=== PATIENT | female | born 1970 | race Caucasian/White ===

== ENCOUNTER 2020-02-05 08:31 | Outpatient (CLI) | payer OTHER, SELFPAY ==
[2020-02-05 09:37] LABS: Hematocrit 39.8 % (37.0-47.0)
== END 2020-02-05 08:32 | disposition home or self-care (01) ==
LOC: ANHSURGERY 08:46
PROVIDERS: Anesthesiology; Visit Provider Obstetrics & Gynecology
DX: Z01.812 Encounter for preprocedural laboratory examination (principal); N92.0 Excessive and frequent menstruation with regular cycle
CPT/HCPCS: 36415; 85014; 85018; 86850; 86900; 86901

== ENCOUNTER 2020-02-06 00:47 | Outpatient (CLI) | payer OTHER, SELFPAY ==
[2020-02-06 18:38] LABS: SARS-CoV-2 RNA PCR Negative
== END 2020-02-06 00:48 | disposition home or self-care (01) ==
LOC: ANHCOVIDDT 00:47
PROVIDERS: Visit Provider Obstetrics & Gynecology
DX: Z01.812 Encounter for preprocedural laboratory examination (principal); Z20.828 Contact with and (suspected) exposure to other viral communicable diseases
CPT/HCPCS: 87635; C9803; U0003

== ENCOUNTER 2020-02-08 01:22 | Day surgery (SDC) | payer OTHER, SELFPAY ==
[2020-01-29 13:56] VITALS: BMI 37.7
[2020-02-08] VITALS (12 sets, daily range): BP systolic 101–143; BP diastolic 47–84; PULSE 77–98; RESP 10–16; TEMP 36.3–36.6; O2SAT 96–100; BMI 37.6
[2020-02-08] MEDS: LACTATED RINGERS 1,000 ML 30 ML IV CONT ×2 (10:32→15:20)
[2020-02-08] MEDS: ACETAMINOPHEN 500 MG TABLET 1000 MG PO (10:36)
[2020-02-08] MEDS: KETOROLAC 15 MG/ML VIAL (*BKC) IV PUSH (10:37)
--- NOTE | 2020-02-08 10:44 | WPDANESEPPF ---
Anes - Initial Pre Proc Eval Procedure: Operation Date: 02/08/20 12:00 Proposed Procedures p Laparoscopic Assisted Vaginal Hysterectomy, Bilateral Salpingo-Oophorectomy, Possible Total Abdominal Hysterectomy With Bilateral Salpingo-Oophorectomy - Kamran Welch MD Date/Time: 02/08/20 10:44 Surgeon: Kamran Welch MD Pre Op Diagnosis: Uterine Fibroids/ Menorrhagia Patient Data Age: 49 Gender: F Height: 5 ft 8 in Weight: 112.4 kg Last Vital Signs Temp 36.4 C 02/08/20 10:12 Pulse 98 02/08/20 10:12 Resp 16 02/08/20 10:12 BP 143/84 H 02/08/20 10:12 Pulse Ox 100 02/08/20 10:12 Allergies Allergy/AdvReac Type Severity Reaction Status Date / Time No Known Allergies Allergy Verified 02/08/20 10:03 Home Medications Medication Instructions Recorded Confirmed Type cholecalciferol (vitamin D3) 250 mcg PO DAILY 01/29/20 02/08/20 History [Vitamin D3] multivitamin 1 tablet PO DAILY 01/29/20 02/08/20 History Patient hx anesthesia problems: none Family hx anesthesia problems: none PMFSH Past Medical History Medical History (Updated 02/08/20 @ 10:45 by Dinh Weaver MD) Obesity Surgical History Surgical History (Updated 02/08/20 @ 10:45 by Dinh Weaver MD) History of section Family History Family History Other Family history of malignant neoplasm of brain Social History Social History Smoking status: Never smoker Alcohol intake: current Drinks per week: 1 Spiritual care concerns: No Anes - Eval Final PreProcedure Day of Procedure 02/08/20 10:44 Patient weight: obese Heart: regular rate and rhythm Lungs: clear to auscultation Airway: Mallampati scale class II Neurological: alert and oriented Last oral intake: >/= 8 hours ASA classification: II Emergent: no Anesthetic plan: proceed Anesthesia type and monitoring: general ETT and standard monitoring Informed Consent: The patient's anesthetic plan and its attendant risks and benefits were discussed with the patient/family/POA. Questions were solicited and answers provided to the satisfaction of the patient/family/POA.
--- NOTE | 2020-02-08 11:20 | PM.IMHP ---
H&P: HPI History of Present Illness Date/Time: 02/08/20 11:20 Chief complaint: Uterine Fibroids/ Menorrhagia Narrative: Isabel Fritz is a 49 year old female with a long history of fibroids and heavy cycles s/p uterine artery embolizaition with minimal relief for fibroids. Desires hysterctomy. s/p hormonal therapy. [facility] Past Medical History Medical History Fibroids Menorrhagia with regular cycle Obesity Surgical History Surgical History History of section S/P Family History Family History Other Family history of malignant neoplasm of brain Social History Social History Smoking status: Never smoker Alcohol intake: current Drinks per week: 1 Spiritual care concerns: No Meds Home Medications and Allergies Home Medications Medication Instructions Recorded Confirmed Type cholecalciferol (vitamin D3) 250 mcg PO DAILY 01/29/20 02/08/20 History [Vitamin D3] multivitamin 1 tablet PO DAILY 01/29/20 02/08/20 History Allergies Allergy/AdvReac Type Severity Reaction Status Date / Time No Known Allergies Allergy Verified 02/08/20 10:03 Vital Signs Vital Signs - 24 hr 02/08/20 10:12 Temperature 36.4 C Pulse Rate 98 Respiratory Rate 16 Blood Pressure 143/84 H Pulse Oximetry 100 Exam Const: General: no acute distress Eyes: General: appearance normal, both eyes and all related structures Resp: Effort & Inspection: normal respiratory effort Cardio: Rate: regular rate Rhythm: regular rhythm GI: GI Palp: Yes Soft to palpation : Speculum Exam - Vagina: normal appearance of the vagina Speculum Exam - Cervix: normal appearance of the cervix Bimanual exam- vagina & uterus: boggy and enlarged Assessment and Plan Assessment and plan (1) S/P : Code(s): Z98.891 - History of uterine scar from previous surgery Status: Acute (2) Menorrhagia with regular cycle: Code(s): N92.0 - Excessive and frequent menstruation with regular cycle Status: Acute Assessment and Plan: scheduled for a laparoscopic assisted vaginal hysterictomy with possible KAMARI. Risk and benefits reviewed with patient in detail. (3) Fibroids: Code(s): D21.9 - Benign neoplasm of connective and other soft tissue, unspecified Status: Acute
--- NOTE | 2020-02-08 11:26 | WPDHPUPDATE1 ---
History and Physical Update Update Date/Time: 02/08/20 11:26 History and Physical has been reviewed, including an updated exam of the patient. There are NO changes in the patient's condition. Risks, benefits, and alternatives have been discussed and questions answered. Patient agrees to proceed with procedure.
[2020-02-08] MEDS: ceFAZolin 2 GM/D5W 50 ML 2 GM/50 ML BAG IVPB (11:51)
[2020-02-08] MEDS: LIDO 1%/EPINEPHRINE 1:100,000 20 ML VIAL INFILTRATE (12:30)
--- NOTE | 2020-02-08 16:12 | PM.PROC ---
Procedure Note - Detailed Date of procedure: 02/08/20 Pre-op diagnosis: Uterine Fibroids/ Menorrhagia Post-op diagnosis: same Procedure performed: YONATAN Description of procedure: Patient was taken to the operating room with IV running prepped and draped in a normal sterile fashion after given general anesthesia she was placed in the dorsal lithotomy position. The abdomen perineum and vagina were prepped and draped in usual sterile fashion a Smith catheter into the bladder and attached to a straight drainage after initial preparation. a bivalve speculum was placed into the vagina anterior lip of the cervix was grasped with a single-tooth tenaculum. A uterine manipulator was placed into the cervix. [place] speculum was removed. Attention was then turned to the abdomen. A 5mm incision was made with the scalpel at the infraumbilical fold. the Veress needle was gently advanced taking care to feel for typical sensation are penetration of the peritoneum. With CO2 infiltration and an opening pressure of less than 6mm is noted and a peritoneal a 15mm was created. A 5mm trocar was then passed through the same incision and the laparoscopic was then inserted through the trocar sleeve. Visual parent visualization of the peritoneal cavity was then obtained and showed normal cavity and under direct observation 5mm ports were placed in the right and left sides. Beginning on the right side and distally along the length of the uterineovarian ligament and fallopian tube to the mesosalpinx and lifting the tube the mesosalpinx was then sequentially clamped ligated and cut using the Harmonic scalpel alongside the length of the tubing towards the cornu. At the level of the cornu was reached attention was then turned to the other side same process was repeated on the left initially clamping widening cutting the mesosalpinx being sure to not injure the adjacent ovarian tissue or the surrounding structures. The round ligament was then ligated and cut following this anterior leaf of the broad ligament was then taken down on both sides dissected down towards the peritoneal reflection in the base of the bladder and adjacent to the cervix. The same process was then repeated on the left side an had been appropriately skeletonized. To ensure excellent hemostasis prior to the transection and ligation of the pedicles. The uterine vessels and cardinal ligament was then ligated and divided on each side using the Harmonic scalpel. Attention was then turned to the vaginal aspect of the surgery the Smith catheter was removed weighted speculum was placed in the posterior aspect of the vagina and the vaginal manipulator was removed. The tenaculum repositioned anteriorly and posteriorly a circumferential incision was made after injecting with 1% lidocaine with and pain and this incision was made at the cervical vaginal reflection using a scalpel. This was undermined 1st anteriorly and colpotomy made without difficulty this was then repeated. Magali retractors were then placed into each of these incisions beginning 1st on the patient's left uterosacral and cardinal ligaments were clamped divided and suture ligated 2 bites were required breech from the previous dissection margin of the left the same process was then repeated on the patient's right side. Several bites nii taken vaginal and the uterus was not freed. Attention then returned to the abdomen and the remaining pedicles were transected and the uterus was freed and pulled from the vagina. the sutures had been placed and the cuff was closed transvaginally without difficulty all pedicles were inspected and hemostasis was confirmed the vaginal vault was then oversewn with a running locking suture of 0 Vicryl securing 1st the posterior edge of the cuff followed by the anterior. The vagina was packed. And using a laparoscopic, the abdomen was carefully reinspected insuring complete hemostasis. abdomen was inspected the ports were then remove
[2020-02-08] MEDS: SIMETHICONE 80 MG TAB.CHEW PO ×2 (17:35→20:21)
[2020-02-08] MEDS: KETOROLAC 30 MG/ML VIAL (*BKC) IV PUSH (17:35)
[2020-02-08] MEDS: DEXTROSE 5%/LACTATED RINGERS 1,000 ML 125 ML IV CONT (17:41)
--- NOTE | 2020-02-08 17:46 | PC.NURSE ---
This patient, Isabel Fritz, was admitted to OB 2nd Floor Room 289-00. Patient/family oriented to hospital policies and general routines including ID bracelet, bed and alarms, visiting hours, pain management, procedures, bathroom and other care routines, personal items, smoking policy, room service/diet, and visiting hours. Information on how to activate the Rapid Response Team has been discussed. Patient/Family are encouraged to report perceived risks to care and to ask questions if they do not understand what they are told or what they should do.
[2020-02-08] MEDS: HYDROcodone/acetaminophen (*CRX) 5-325 MG TABLET 1 TAB PO (20:18)
[2020-02-08] MEDS: SENNA/DOCUSATE SODIUM TABLET 2 TAB PO (20:19)
[2020-02-09 00:50] VITALS: BP 122/66; PULSE 87; RESP 14; TEMP 36.8; O2SAT 97
[2020-02-09] MEDS: HYDROcodone/acetaminophen (*CRX) 5-325 MG TABLET 1 TAB PO ×2 (00:59→05:08)
[2020-02-09] MEDS: SIMETHICONE 80 MG TAB.CHEW PO ×2 (00:59→09:44)
[2020-02-09] MEDS: KETOROLAC 30 MG/ML VIAL (*BKC) IV PUSH (00:59)
[2020-02-09 04:55] VITALS: BP 121/68; PULSE 74; RESP 14; TEMP 37.4; O2SAT 99
[2020-02-09] MEDS: ESTRADIOL 7 DAY 0.05 MG PATCH TRANSDERM (04:56)
[2020-02-09 05:33] LABS: Eosinophils Percent Auto 0.1 % (0-4.4); Hematocrit 35.1 % (37.0-47.0); Hemoglobin 11.3 g/dL (12.0-15.0); Immature Granulocyte Absolute 0.03 K/mm3 (0.00-0.031); Immature Granulocyte Percent A 0.3 % (0-0.5); Lymphocytes Absolute Auto 1.96 K/mm3 (0.9-3.2); Lymphocytes Percent Auto 20.9 % (18.3-44.2); Mean Corpuscular HGB Conc 32.2 g/dl (32-36); Mean Corpuscular Hemoglobin 26.5 pg (26-34); Mean Corpuscular Volume 82.4 fl (80-100); Mean Platelet Volume 9.9 fl (7.4-10.4); Monocytes Absolute Auto 0.8 K/mm3 (0.1-0.6); Monocytes Percent Auto 8.4 % (2.6-8.5); Neutrophils Absolute Auto 6.6 K/mm3 (1.3-6.7); Neutrophils Percent Auto 70.3 % (45.5-73.1); Platelet Count Result 382 k/mm3 (150-375); Red Blood Count 4.26 M/mm3 (4.2-5.4); Red Cell Distribution Width 14.6 % (11.5-14.5); White Blood Count 9.4 K/mm3 (4.5-10.0)
[2020-02-09 05:45] LABS: Anion Gap 5 mmol/L (8-16); Blood Urea Nitrogen 7 mg/dL (7-17); Calcium 8.5 mg/dL (8.4-10.2); Carbon Dioxide 28 mmol/L (22-30); Chloride 106 mmol/L (98-107); Estimated CRCL calculation 100 ml/min; Estimated Glomerular Filt Rate > 60; Glucose 108 mg/dL (65-105); Potassium 3.7 mmol/L (3.4-5.0); Sodium 139 mmol/L (137-145)
--- NOTE | 2020-02-09 08:14 | P.PNAN_ITS ---
Anes - Prog Note Post-Op Date/Time: 02/09/20 08:14 Cardiovascular status: normal Respiratory status: normal Airway patency: baseline Mental status: baseline Post-Op hydration status: normal Vital Signs: Last Vital Signs Temp 37.4 C 02/09/20 04:55 Pulse 74 02/09/20 04:55 Resp 14 02/09/20 04:55 BP 121/68 02/09/20 04:55 Pulse Ox 99 02/09/20 04:55 Pain Score (VAS): 3 I/O: Intake & Output 02/08/20 02/09/20 02/09/20 23:59 07:59 15:59 Intake Total 350 1140 Output Total 460 1925 Balance -110 -785 Laboratory Tests 02/09/20 05:03 02/09/20 05:03 02/09/20 02/09/20 05:03 05:03 WBC 9.4 RBC 4.26 Hgb 11.3 L Hct 35.1 L MCV 82.4 MCH 26.5 MCHC 32.2 RDW 14.6 H Plt Count 382 H MPV 9.9 Immature Gran % (Auto) 0.3 Neut % (Auto) 70.3 Lymph % (Auto) 20.9 [place] % (Auto) 8.4 Eos % (Auto) 0.1 Baso % (Auto) 0.0 L Lymph # (Auto) 1.96 [place] # (Auto) 0.8 H Eos # (Auto) 0.0 Baso # (Auto) 0.0 Abs Immat Gran (auto) 0.03 Absolute Neuts (auto) 6.6 Absolute Nucleated RBC 0.0 Nucleated RBC % 0.0 Sodium 139 Potassium 3.7 Chloride 106 Carbon Dioxide 28 Anion Gap 5 L BUN 7 Creatinine 0.80 Estim Creat Clear Calc 100 Estimated GFR > 60 Glucose 108 H Calcium 8.5 Patient Feedback: Patient satisfied with anesthetic care.
[2020-02-09 08:40] VITALS: BP 136/72; PULSE 85; RESP 18; TEMP 37.1; O2SAT 99
[2020-02-09] MEDS: IBUPROFEN 600 MG TABLET PO (09:42)
--- NOTE | 2020-02-09 12:26 | PM.GYNPNOP ---
RECLAMATION FURNACE OPERATOR - A/P Postoperative Procedures: Procedures Operation Date: 02/08/20 12:00 Actual Procedures Side Surgeon p Laparoscopic Assisted Vaginal Hysterectomy, Bilateral Salpingo-Oophorectomy Kamran Welch MD Postoperative day: 1 Postoperative status: doing well Postoperative plan: routine post-op care and discharge Time Spent With Patient Time: Total time spent is greater than 50% in coordination of care (as documented) at patient's floor/unit and/or counseling patient: Time with patient: less than 15 minutes RECLAMATION FURNACE OPERATOR- PN:Subj Post-Op Subjective Date/time seen: 02/09/20 12:26 Subjective: patient has no complaints, pain is well controlled and patient is tolerating oral intake Exam GI: Inspection: normal to inspection and other (inc c/d/i) RECLAMATION FURNACE OPERATOR - PN: Obj Data Vital Signs Vital Signs: Vital Signs - 24 hr 02/08/20 15:20 02/08/20 15:33 02/08/20 15:49 Temperature 97.8 F Pulse Rate 77 91 77 Respiratory Rate 10 L 16 12 Blood Pressure 101/47 L 108/63 Pulse Oximetry 100 100 100 02/08/20 16:03 02/08/20 16:20 02/08/20 17:00 Temperature 97.4 F L Pulse Rate 84 84 86 Respiratory Rate 12 12 16 Blood Pressure 130/60 132/69 136/74 Pulse Oximetry 97 99 100 02/08/20 17:15 02/08/20 17:30 02/08/20 18:00 Temperature Pulse Rate 79 83 80 Respiratory Rate Blood Pressure 137/76 133/73 134/74 Pulse Oximetry 98 96 98 02/08/20 19:00 02/08/20 20:00 02/09/20 00:50 Temperature 97.9 F 98.2 F Pulse Rate 89 87 87 Respiratory Rate 15 14 Blood Pressure 136/78 143/79 H 122/66 Pulse Oximetry 100 100 97 02/09/20 04:55 02/09/20 08:40 Temperature 99.3 F 98.7 F Pulse Rate 74 85 Respiratory Rate 14 18 Blood Pressure 121/68 136/72 Pulse Oximetry 99 99 Intake/Output Intake/Output: Intake & Output 02/06/20 02/07/20 02/08/20 02/09/20 23:59 23:59 23:59 23:59 Intake Total 400 1140 Output Total 460 1925 Balance -60 -785 Meds/Results Medications: Active Medications Generic Name Dose Route Start Last Admin Trade Name Freq PRN Reason Stop Dose Admin Hydrocodone Bitart/Acetaminophen 1 tab 02/08/20 15:20 02/09/20 05:08 Hydrocodone/Acetaminophen (*Crx) 5-325 Mg Tablet PO 1 tab Q3H PRN Administration Pain Rated 5 or Less Hydrocodone Bitart/Acetaminophen 1 tab 02/08/20 15:20 Hydrocodone/Acetaminophen (*Crx) 10-325 Mg Tablet PO Q3H PRN Pain Rated 6 or Greater Estradiol 0.05 mg 02/08/20 09:00 02/09/20 04:56 Estradiol 7 Day 0.05 Mg Patch TRANSDERM 0.05 mg WEEKLY CODY Administration Ibuprofen 600 mg 02/08/20 15:20 02/09/20 09:42 Ibuprofen 600 Mg Tablet PO 600 mg Q6H PRN Administration Cramping Ketorolac Tromethamine 30 mg 02/08/20 15:20 02/09/20 00:59 Ketorolac 30 Mg/Ml Vial (*Bkc) IV PUSH 02/13/20 15:21 30 mg Q6H PRN Administration Pain Rated 4-6 Morphine Sulfate 4 mg 02/08/20 15:20 Morphine Sulfate (*Crx) 4 Mg/Ml Inj IV PUSH Q4H PRN Severe breakthrough pain Naloxone HCl 0.1 mg 02/08/20 15:20 Naloxone Hcl 0.4 Mg/Ml Vial IV PUSH Q2M PRN Respiratory rate less than 10 Ondansetron HCl 4 mg 02/08/20 15:20 Ondansetron Inj 4 Mg/2 Ml Vial IV PUSH Q6H PRN Nausea And Vomiting Senna/Docusate Sodium 2 tab 02/08/20 21:00 02/08/20 20:19 Senna/Docusate Sodium Tablet PO 2 tab HS CODY Administration Simethicone 80 mg 02/08/20 15:20 02/09/20 09:44 Simethicone 80 Mg Tab.Chew PO 80 mg Q2H PRN Administration Gas Labs CBC & Chem 7: 02/09/20 05:03 02/09/20 05:03 Labs: Laboratory Results - last 24 hr 02/09/20 02/09/20 05:03 05:03 WBC 9.4 RBC 4.26 Hgb 11.3 L Hct 35.1 L MCV 82.4 MCH 26.5 MCHC 32.2 RDW 14.6 H Plt Count 382 H MPV 9.9 Immature Gran % (Auto) 0.3 Neut % (Auto) 70.3 Lymph % (Auto) 20.9 [place] % (Auto) 8.4 Eos % (Auto) 0.1 Baso % (Auto) 0.0 L Lymph # (Auto) 1.96 [place] # (Auto) 0.8 H
== END 2020-02-09 13:10 | disposition home or self-care (01) ==
LOC: ANHSURGERY 16:10 → ANHOB2 17:22
PROVIDERS: Visit Provider Obstetrics & Gynecology
PROC: 0UT9FZZ Resection of Uterus, Via Natural or Artificial Opening With Percutaneous Endoscopic Assistance (ICD-10-PCS; CPT 58554; principal; 2020-02-08 12:00)
DX: D25.9 Leiomyoma of uterus, unspecified (principal); N92.0 Excessive and frequent menstruation with regular cycle; E66.9 Obesity, unspecified; Z68.37 Body mass index [BMI] 37.0-37.9, adult
CPT/HCPCS: 58554; 36415; 80048; 85025; 88307; 99199; A9270; J0690; J1100; J1885; J2250; J2405; J2704; J2710; J3010; J7120; J7121